=== PATIENT | male | born 1980 | race Caucasian/White ===

== ENCOUNTER 2017-11-20 00:16 | Inpatient (IN) | payer SELFPAY ==
[2017-11-20] MEDS ORDERED: fentaNYL PF VIAL 100 MCG/2 ML VIAL (00:18)
[2017-11-20 00:33] LABS: ADD MAN DIFF? NO
[2017-11-20 00:37] LABS: BASO # 0.1 x10^3/uL (0.0-0.2); BASO % 1 % (0-3); EOS # 0.4 x10^3/uL (0.0-0.7); EOS % 3 % (0-3); HEMATOCRIT 47.8 % (39.0-53.0); HEMOGLOBIN 16.6 g/dL (13.0-17.5); LYMPH # 3.8 x10^3/uL (1.0-4.8); LYMPH % 29 % (24-48); MEAN CORPUSCULAR HEMOGLOBIN 34 pg (25-35); MEAN CORPUSCULAR HGB CONC 35 g/dL (31-37); MEAN CORPUSCULAR VOLUME 97 fL (79-100); MONO # 0.9 x10^3/uL (0.0-1.1); MONO % 7 % (0-9); NEUT # 7.9 x10^3uL (1.8-7.7); NEUT % 60 % (31-73); PLATELET COUNT 244 x10^3/uL (140-400); RED BLOOD COUNT 4.94 x10^6/uL (4.30-5.70); RED CELL DISTRIBUTION WIDTH 13.7 % (11.5-14.5); WHITE BLOOD COUNT 13.1 x10^3/uL (4.0-11.0)
[2017-11-20] MEDS: KETAMINE HCL 500 MG/10 ML VIAL. IV (00:39)
[2017-11-20] MEDS: fentaNYL PF VIAL 100 MCG/2 ML VIAL IV ×2 (00:40→00:42)
[2017-11-20 00:45] LABS: PROTHROMBIN TIME PATIENT 12.8 SEC (11.7-14.0)
[2017-11-20] MEDS: DIPHTH,PERTUSS(ACELL),TET TOX 0.5 ML DISP.SYRIN. VAX IM (01:00)
[2017-11-20 01:33] LABS: ANION GAP 10 (6-14); BLOOD UREA NITROGEN 9 mg/dL (8-26); BUN/CREATININE RATIO 8 (6-20); CALCIUM 8.7 mg/dL (8.5-10.1); CARBON DIOXIDE 26 mmol/L (21-32); CHLORIDE 104 mmol/L (98-107); CREATININE 1.1 mg/dL (0.7-1.3); GFR 74.9; GLUCOSE 110 mg/dL (70-99); POTASSIUM 3.4 mmol/L (3.5-5.1); SODIUM 140 mmol/L (136-145)
[2017-11-20 01:37] LABS: ETHANOL 117 mg/dL (0-10)
[2017-11-20 01:39] LABS: ALBUMIN 4.2 g/dL (3.4-5.0); ALBUMIN/GLOBULIN RATIO 1.3 (1.0-1.7); ALK PHOS 59 U/L (46-116); ALT (SGPT) 32 U/L (16-63); AST (SGOT) 32 U/L (15-37); TOTAL BILIRUBIN 0.4 mg/dL (0.2-1.0); TOTAL PROTEIN 7.5 g/dL (6.4-8.2)
[2017-11-20] MEDS ORDERED: CONTRAST GIVEN. MC (02:00)
[2017-11-20] MEDS: IOHEXOL 300 MG/ML 100ML VIAL. IV (02:00)
[2017-11-20] MEDS: MORPHINE SULFATE 4 MG/ML DISP.SYRIN. IV (02:40)
[2017-11-20] MEDS ORDERED: ONDANSETRON PF 4 MG/2 ML VIAL. (03:43)
[2017-11-20] MEDS: ONDANSETRON PF 4 MG/2 ML VIAL. IV (03:45)
[2017-11-20] MEDS: oxyCODONE IR 5 MG TABLET PO ×2 (05:49→09:40)
[2017-11-20] MEDS: IV NORMAL SALINE 1000ML BAG 1,000 ML IV ×2 (05:50→21:27)
[2017-11-20] MEDS: ENOXAPARIN 40 MG/0.4 ML SYRINGE. SQ (08:45)
[2017-11-20] MEDS ORDERED: ACETAMINOPHEN 325 MG TABLET. PO (09:45)
[2017-11-20] MEDS ORDERED: ONDANSETRON PF 4 MG/2 ML VIAL. IV (09:45)
[2017-11-20] MEDS ORDERED: DOCUSATE SODIUM 100 MG CAPSULE. PO (09:45)
[2017-11-20] MEDS ORDERED: hydrALAZINE 20 MG/ML VIAL. IVP (09:45)
[2017-11-20] MEDS: oxyCODONE/APAP 10/325 1 TAB TABLET PO ×3 (13:05→23:58)
[2017-11-20] MEDS: NICOTINE 21MG PATCH. TD (15:18)
[2017-11-20] MEDS: POTASSIUM CHLORIDE 20 MEQ TABLET.ER. PO (15:19)
[2017-11-20] MEDS: traMADol 50 MG TABLET PO (16:49)
[2017-11-20] MEDS: MORPHINE SULFATE 2 MG/ML DISP.SYRIN. IV ×2 (18:17→20:59)
[2017-11-21] MEDS: MORPHINE SULFATE 2 MG/ML DISP.SYRIN. IV (03:52)
[2017-11-21] MEDS: oxyCODONE/APAP 10/325 1 TAB TABLET PO ×2 (04:49→13:39)
[2017-11-21] MEDS: ENOXAPARIN 40 MG/0.4 ML SYRINGE. SQ (08:45)
[2017-11-21] MEDS: NICOTINE 21MG PATCH. TD (09:02)
[2017-11-21] MEDS: oxyCODONE IR 5 MG TABLET PO ×2 (09:03→13:38)
[2017-11-21] MEDS: traMADol 50 MG TABLET PO (09:03)
[2017-11-21] MEDS: IV NORMAL SALINE 1000ML BAG 1,000 ML IV (09:04)
== END 2017-11-21 14:26 | disposition home or self-care (01) | DRG 184 ==
LOC: ER 00:16 → 4 NORTH 03:40
DX: S22.43XA Multiple fractures of ribs, bilateral, initial encounter for closed fracture (principal); S27.0XXA Traumatic pneumothorax, initial encounter; F17.210 Nicotine dependence, cigarettes, uncomplicated; J45.909 Unspecified asthma, uncomplicated; M25.78 Osteophyte, vertebrae; S52.123A Displaced fracture of head of unspecified radius, initial encounter for closed fracture; S40.019A Contusion of unspecified shoulder, initial encounter; Z82.49 Family history of ischemic heart disease and other diseases of the circulatory system; Z90.49 Acquired absence of other specified parts of digestive tract; V29.9XXA Motorcycle rider (driver) (passenger) injured in unspecified traffic accident, initial encounter; Y93.55 Activity, bike riding; Y92.488 Other paved roadways as the place of occurrence of the external cause; Y99.8 Other external cause status
CPT/HCPCS: 36415; 70450; 70486; 71045; 71260; 72125; 72170; 73030; 73080; 73110; 74177; 80053; 85025; 85610; 96374; 96375; 99291; G0238; G0390; G0480; J2270; J2405; J3010; J3490; J7030; Q9967